=== PATIENT | male | born 1995 | race Caucasian/White ===

== ENCOUNTER 2018-04-18 23:19 | Inpatient (IN) | payer OTHER ==
[~2018-04-18] VITALS: Ht 180.3 cm; Wt 87.7 kg
[2018-04-18 23:31] VITALS: Ht 180.3 cm; Wt 87.7 kg
[2018-04-19 00:31] LABS: BASOPHIL % 0.3 % (0-2); CALCIUM 8.7 mg/dL (8.5-10.1); CARBON DIOXIDE 25.3 mmol/L (21-32); CHLORIDE SERUM 103 mmol/L (98-107); GFR1 > 60 mL/min; GLUCOSE SERUM 125 mg/dL (74-106); PLATELET COUNT 351 x10^3mcL (130-400); POTASSIUM SERUM 3.4 mmol/L (3.5-5.1); RED CELL DISTRIBUTION WIDTH 13.6 % (11.5-14.5); SODIUM SERUM 137 mmol/L (136-145)
[2018-04-19 00:39] LABS: ALBUMIN 4.1 g/dL (3.4-5.0); ALKALINE PHOSPHATASE 81 U/L (46-116); ALT/SGPT 19 U/L (16-63); AST/SGOT 24 U/L (15-37); BILIRUBIN TOTAL 0.54 mg/dL (0.20-1.00); T4(THYROXINE) 8.3 ug/dL (4.7-13.3); TOTAL PROTEIN, SERUM 7.7 g/dL (6.4-8.2)
[2018-04-19 04:02] LABS: AMPHETAMINE QUAL UR NONE DETECTED (See below)
[2018-04-19 14:02] LABS: UA SPECIFIC GRAVITY >=1.030 (1.005-1.035); microscopic required? YES; urine erythrocyte NEGATIVE (NEGATIVE)
[2018-04-19 14:20] LABS: BASOPHIL % 0.3 % (0-2); PLATELET COUNT 353 x10^3mcL (130-400); RED CELL DISTRIBUTION WIDTH 13.5 % (11.5-14.5)
[2018-04-19 18:29] VITALS: BP 135/76
[2018-04-19 19:57] LABS: MAGNESIUM 2.1 mg/dL (1.8-2.4)
[2018-04-19 20:13] LABS: PHOSPHOROUS 4.4 mg/dL (2.5-4.9)
[2018-04-19 20:14] LABS: CHOLESTEROL/HDL RATIO 2.6
[2018-04-19 21:09] VITALS: BP 129/69
[2018-04-20 05:11] VITALS: BP 111/86
[2018-04-20 06:34] LABS: CALCIUM 9.3 mg/dL (8.5-10.1); CARBON DIOXIDE 29.3 mmol/L (21-32); CHLORIDE SERUM 105 mmol/L (98-107); GFR1 > 60 mL/min; GLUCOSE SERUM 90 mg/dL (74-106); POTASSIUM SERUM 4.6 mmol/L (3.5-5.1); SODIUM SERUM 144 mmol/L (136-145)
[2018-04-20 08:48] VITALS: BP 124/53
[2018-04-20 17:43] VITALS: BP 137/78
[2018-04-20 20:26] VITALS: BP 128/66
[2018-04-21 05:34] VITALS: BP 108/56
[2018-04-21 09:07] VITALS: BP 101/56
[2018-04-21 17:29] VITALS: BP 120/68
[2018-04-21 20:08] VITALS: BP 136/79
[2018-04-22 05:29] VITALS: BP 108/68
[2018-04-22 07:57] VITALS: BP 116/70
[2018-04-22 17:35] VITALS: BP 138/75
[2018-04-23 05:55] VITALS: BP 109/71
[2018-04-23 07:50] VITALS: BP 116/60
[2018-04-23 18:00] VITALS: BP 145/80
[2018-04-23 20:27] VITALS: BP 122/69
[2018-04-24 06:17] VITALS: BP 124/79
[2018-04-24 08:18] VITALS: BP 134/72
[2018-04-24] MEDS ORDERED: VIS25 PO (14:12)
[2018-04-24 14:14] VITALS: BP 134/72
== END 2018-04-24 17:06 | disposition home or self-care (01) | DRG 425 ==
LOC: ED 23:19 → MU 04-19 13:02
PROVIDERS: Emergency Medicine; Internal Medicine
DX: E87.6 Hypokalemia (principal); N17.0 Acute kidney failure with tubular necrosis; R45.851 Suicidal ideations; F22 Delusional disorders; F29 Unspecified psychosis not due to a substance or known physiological condition; F12.188 Cannabis abuse with other cannabis-induced disorder; F41.1 Generalized anxiety disorder; Z23 Encounter for immunization; Z68.25 Body mass index [BMI] 25.0-25.9, adult; Z71.51 Drug abuse counseling and surveillance of drug abuser
CPT/HCPCS: 83880; 90658; G0480; Q0092; Q0163

== ENCOUNTER 2018-05-15 01:11 | Emergency (ER) | payer OTHER ==
[~2018-05-15] VITALS: Ht 180.3 cm; Wt 94.3 kg
[~2018-05-15 01:11] MED LIST: VIS25 PO
[2018-05-15 01:15] VITALS: Ht 180.3 cm; Wt 94.3 kg
[2018-05-15 01:42] VITALS: BP 137/83
== END 2018-05-15 01:42 | disposition home or self-care (01) ==
LOC: ED 01:11
DX: F41.9 Anxiety disorder, unspecified (principal)

== ENCOUNTER 2018-05-15 21:22 | Emergency (ER) | payer OTHER ==
[~2018-05-15] VITALS: Ht 180.3 cm; Wt 93.9 kg
[2018-05-15 21:23] VITALS: Ht 180.3 cm; Wt 93.9 kg
[2018-05-15 23:08] VITALS: BP 123/73
== END 2018-05-15 23:08 | disposition home or self-care (01) ==
LOC: ED 21:22
DX: Z76.0 Encounter for issue of repeat prescription (principal); F41.9 Anxiety disorder, unspecified

== ENCOUNTER 2018-11-19 11:17 | Emergency (ER) | payer OTHER ==
[~2018-11-19] VITALS: Ht 180.3 cm; Wt 83.0 kg
[2018-11-19 11:22] VITALS: Ht 180.3 cm; Wt 83.0 kg
[2018-11-19 12:13] LABS: microscopic required? NO
[2018-11-19 12:19] LABS: BASOPHIL % 0.4 % (0-2); PLATELET COUNT 326 x10^3mcL (130-400); RED CELL DISTRIBUTION WIDTH 13.2 % (11.5-14.5)
[2018-11-19 12:23] LABS: CALCIUM 9.1 mg/dL (8.5-10.1); CHLORIDE SERUM 102 mmol/L (98-107); CREATININE SERUM 1.1 mg/dL (0.7-1.3); GFR1 > 60 mL/min; GLUCOSE SERUM 90 mg/dL (74-106); POTASSIUM SERUM 3.9 mmol/L (3.5-5.1); SODIUM SERUM 141 mmol/L (136-145)
[2018-11-19 12:24] LABS: LIPASE 71 IU/L (73-393)
[2018-11-19 12:26] LABS: UA SPECIFIC GRAVITY 1.015 (1.005-1.035); urine erythrocyte NEGATIVE (NEGATIVE)
[2018-11-19 14:33] VITALS: BP 136/83
== END 2018-11-19 14:33 | disposition home or self-care (01) ==
LOC: ED 11:17
PROVIDERS: Emergency Medicine
DX: K62.89 Other specified diseases of anus and rectum (principal); K59.00 Constipation, unspecified; F12.90 Cannabis use, unspecified, uncomplicated
CPT/HCPCS: 36415; J7030; Q9967

== ENCOUNTER 2018-11-26 15:18 | Emergency (ER) | payer OTHER ==
[~2018-11-26] VITALS: Ht 180.3 cm; Wt 83.9 kg
[2018-11-26 15:21] VITALS: BP 137/91; Ht 180.3 cm; Wt 83.9 kg
== END 2018-11-26 17:10 | disposition home or self-care (01) ==
LOC: ED 15:18
DX: R06.02 Shortness of breath (principal); K62.89 Other specified diseases of anus and rectum; R42 Dizziness and giddiness
CPT/HCPCS: 85378